=== PATIENT | male | born 1940 | race Caucasian/White ===

== ENCOUNTER 2016-04-07 22:10 | Inpatient (IN) | payer MEDICARE ==
[2016-04-07] MEDS ORDERED: HYDROmorphone 1 MG/ML 1 ML SYRINGE IVP STA (23:02)
[2016-04-07] MEDS ORDERED: NALOXONE 0.4 MG/ML 1 ML VIAL IV PRN (23:14)
[2016-04-07] MEDS ORDERED: ACETAMINOPHEN TAB 325 MG TAB PO PRN (23:14)
[2016-04-07] MEDS ORDERED: MAG HYDROX/AL HYDROX/SIMETH 30 ML CUP PO PRN (23:14)
[2016-04-07] MEDS ORDERED: TEMAZEPAM 15 MG CAP PO PRN (23:14)
[2016-04-07] MEDS ORDERED: ALBUTEROL NEBULIZED 2.5 MG/3 ML INHALATION PRN (23:20)
[2016-04-07] MEDS: SODIUM CHLORIDE 0.9% 1,000 ML IV SCH (23:29)
--- NOTE | 2016-04-07 23:38 | ED ---
SOB HPI - General Chief Complaint: Shortness of Breath Stated Complaint: Chest Pain Time Seen by Provider: 04/07/16 22:25 Source: patient, EMS, RN notes reviewed Mode of arrival: EMS Limitations: no limitations - History of Present Illness Initial Comments: This patient is a 76-year-old man transferred from [facility] where he was seen today for left-sided chest pain and a nonproductive cough. The patient states that his symptoms started about 2 weeks ago. He was seen and diagnosed with pneumonia and noted that his pain continued. He was seen again and this time a CAT scan was added that showed probability of an underlying lung mass. The patient denies fever or chills. He has some left-sided, moderate intensity, pleuritic chest pain. Patient has some mild dyspnea. Patient has a non-productive cough. He denies fever or chills. He denies orthopnea. Patient denies leg pain or swelling. Denies change in urination or bowel movements. MD Complaint: cough, chest pain Onset/Timin -: week(s) Severity: moderate Quality: sharp Consistency: constant Improves With: upright position Worsens With: coughing, inspiration - Related Data Home Medications Medication Instructions Recorded Confirmed Albuterol Inhaler [Ventolin Hfa 2 puff INHALATION RT-Q4H PRN 04/07/16 04/07/16 Inhaler] Amoxicillin/Potassium Clav 1 tab PO Q12HR 04/07/16 04/07/16 [Augmentin 500-125 Tablet] Atenolol [Tenormin] 25 mg PO DAILY 04/07/16 04/07/16 Lisinopril [Zestril] 2.5 mg PO DAILY 04/07/16 04/07/16 Allergies Allergy/AdvReac Type Severity Reaction Status Date / Time No Known Allergies Allergy Verified 04/07/16 22:51 Review of Systems ROS Statement: Those systems with pertinent positive or pertinent negative responses have been documented in the HPI. ROS Other: All systems not noted in ROS Statement are negative. Constitutional: Denies: fever, chills, weakness Respiratory: Reports: cough, dyspnea. Denies: wheezes, hemoptysis Cardiovascular: Reports: chest pain. Denies: palpitations, edema, syncope Gastrointestinal: Denies: abdominal pain, nausea, vomiting Genitourinary: Denies: dysuria, hematuria Musculoskeletal: Denies: back pain Skin: Denies: rash Neurological: Denies: headache, weakness Past Medical History Additional Past Medical History / Comment(s): STATES "OVERSIDED HEART" History of Any Multi-Drug Resistant Organisms: None Reported Past Surgical History: Orthopedic Surgery Additional Past Surgical History / Comment(s): LEFT LEG, FEMUR FX 3 YRS AGO Past Psychological History: No Psychological Hx Reported Smoking Status: Former smoker Past Alcohol Use History: None Reported Past Drug Use History: None Reported General Exam Limitations: no limitations General appearance: alert, in no apparent distress Head exam: Present: atraumatic, normocephalic Eye exam: Present: normal appearance. Absent: scleral icterus, conjunctival injection Respiratory exam: Present: rales (Right upper lung field), decreased breath sounds (Left base). Absent: respiratory distress, wheezes, rhonchi, stridor, accessory muscle use, prolonged expiratory Cardiovascular Exam: Present: regular rate, normal rhythm, normal heart sounds. Absent: systolic murmur, diastolic murmur, rubs, gallop GI/Abdominal exam: Present: soft. Absent: distended, tenderness, guarding, rebound, mass Extremities exam: Present: normal inspection, normal capillary refill. Absent: pedal edema, calf tenderness Back exam: Absent: CVA tenderness (R), CVA tenderness (L) Neurological exam: Present: alert Skin exam: Present: warm, dry, intact, normal color. Absent: rash, cyanosis, diaphoretic, erythema, petechiae, pallor, mottled Course Vital Signs 04/07/16 04/07/16 22:15 23:16 Temperature 98.8 F Pulse Rate 101 H 100 Respiratory 20 16 Rate Blood Pressure 135/78 111/63 O2 Sat by Pulse 95 95 Oximetry Disposition Clinical Impression: Pleural effusion, Lung mass Disposition: ADMITTED IP TO THIS HOSP Condition: Fair Referrals: Nonstaff,Physician [Primary Care Provider] - 1-2 days
[2016-04-07] MEDS ORDERED: ONDANSETRON 4 MG/2 ML VIAL IVP STA (23:57)
[2016-04-08] MEDS ORDERED: ONDANSETRON 4 MG/2 ML VIAL IVP STA
[2016-04-08 01:42] VITALS: BMI 24.1
[2016-04-08] MEDS: MORPHINE SULFATE 4 MG/ML SYRINGE IV PRN ×2 (05:36→11:20)
[2016-04-08] MEDS: ATENOLOL 25 MG TAB PO SCH (09:53)
[2016-04-08] MEDS: AMOXIC-POT CLAV 500-125 MG 1 EACH TAB PO SCH ×2 (09:53→21:34)
[2016-04-08] MEDS: HEPARIN SODIUM,PORCINE 5,000 UNIT/ML 1 ML VIAL SQ SCH ×2 (09:54→21:25)
[2016-04-08] MEDS: FAMOTIDINE 20 MG TAB PO SCH ×2 (09:54→21:47)
[2016-04-08] MEDS: LEVOFLOXACIN 750MG-D5W PMX 750 MG in DEXTROSE/WATER 1 150ML.BAG IVPB SCH (09:54)
[2016-04-08] MEDS: LISINOPRIL 2.5 MG TAB PO SCH (09:55)
--- NOTE | 2016-04-08 11:39 | XR ---
EXAMINATION TYPE: XR chest 1V portable DATE OF EXAM: 04/08/2016 11:12 AM COMPARISON: Prior chest x-ray 03 April 2016, second May 2012, CTA chest March HISTORY: Pneumonia, abnormal chest CT TECHNIQUE: Single frontal view of the chest is obtained. FINDINGS: The heart is enlarged. There is a sizable left pleural effusion present. Patient is rotate d. Interstitium is increased, mixed airspace disease is suspected within the right chest. There is me diastinal adenopathy. Central vascularity is prominent. IMPRESSION: Correlate for congestive heart failure with left pleural effusion, pneumonia not exclude d. Follow-up to resolution, chest CT suggests left lower lobe lung mass, abdominal masses are present compatible with metastatic disease.
--- NOTE | 2016-04-08 12:20 | P.CNPUL ---
History of Present Illness Consult date: 04/08/16 Reason for consult: lung mass History of present illness: This is a 76-year-old male patient, an ex-smoker who quit smoking more than 15 years ago, was having symptoms of pneumonia approximately 2 weeks ago. The patient was seen by his primary care physician and he was given a course of Augmentin without much improvement. Based on this, the patient presented back and he had a chest x-ray that showed a mass in the left lung. Based on this, a computed tomography scan of the chest was done and a CAT scan showed a large mass involving the left hilar and mediastinal area and there is also evidence of subdiaphragmatic lymphadenopathy. There is a small left-sided pleural effusion with compressive atelectasis of the left lung base. No evidence of any pulmonary embolism. These findings were very worrisome of lung cancer on the face and that the patient was transferred to [facility] for further evaluation and treatment and diagnosis. Clinically, the patient is stable for now. He is not having any hemoptysis. He admits to have some weight loss especially over the past 1 year. No chest pain. No change in mental status. No other complaints otherwise. Past Medical History Additional Past Medical History / Comment(s): Hypertension, coronary artery disease with a remote history of myocardial infarction, skin cancer resected from the forehead, questionable irregular heartbeat/atrial fibrillation and the patient is currently in sinus rhythm, history of broken ribs History of Any Multi-Drug Resistant Organisms: None Reported Past Surgical History: Orthopedic Surgery Additional Past Surgical History / Comment(s): ORIF and insertion of a metal rods in the left leg in 2012, colonoscopy Past Anesthesia/Blood Transfusion Reactions: No Reported Reaction Past Psychological History: No Psychological Hx Reported Smoking Status: Former smoker Past Alcohol Use History: None Reported Past Drug Use History: None Reported Medications and Allergies Home Medications Medication Instructions Recorded Confirmed Type Albuterol Inhaler [Ventolin Hfa 2 puff INHALATION RT-Q4H PRN 04/07/16 04/07/16 History Inhaler] Amoxicillin/Potassium Clav 1 tab PO Q12HR 04/07/16 04/07/16 History [Augmentin 500-125 Tablet] Atenolol [Tenormin] 25 mg PO DAILY 04/07/16 04/07/16 History Lisinopril [Zestril] 2.5 mg PO DAILY 04/07/16 04/07/16 History Allergies Allergy/AdvReac Type Severity Reaction Status Date / Time No Known Allergies Allergy Verified 04/07/16 22:51 Physical Exam Vitals: Vital Signs Temp Pulse Pulse Resp BP BP Pulse Ox 04/08/16 07:43 98 F 92 16 118/61 95 04/08/16 01:13 97.3 F L 103 H 18 142/82 94 L 04/08/16 00:05 90 16 129/64 96 Intake and Output 04/07/16 04/08/16 04/08/16 22:59 06:59 14:59 Other: Weight 70 kg The patient appeared well nourished and normally developed. Vital signs as documented. Head exam is unremarkable. No scleral icterus or corneal arcus noted. Neck is without jugular venous distension, thyromegaly, or carotid bruits. Carotid upstrokes are brisk bilaterally. Lung sounds are diminished specially in the left lung base. There is no significant. Cardiac exam reveals the PMI to be normally sized and situated. Rhythm is regular. First and second heart sounds normal. No murmurs, rubs or gallops. Abdominal exam reveals normal bowel sounds, no masses, no organomegaly and no aortic enlargement. Extremities are nonedematous and both femoral and pedal pulses are normal. Results - Diagnostic Findings CT scan - chest: image reviewed Assessment and Plan Plan: Impression 1 left hilar mass with extensive mediastinal lymphadenopathy, worrisome for underlying bronchogenic carcinoma. The patient will need a bronchoscopy for tissue diagnosis. 2 small left-sided pleural effusion 3 COPD 4 recent pneumonia, treated with antibiotics 5 hypertension 6 ex-smoker, [id number] smoking history and he quit 15 years ago Plan I reviewed the CAT scan of the chest was sent to us from [facility]. The left-sided pleural effusion is small and it may not give us a good yield in terms of tissue diagnosis. Based on this, I decided to proceed with a bronchoscopy and the patient has a very accessible mediastinal mass that can be accessed through bronchoscopy and transbronchial needle aspirate. The procedure as stated the patient and the patient was agreeable. He'll be kept nothing by mouth after midnight and the procedure will be done first thing in the morning. We'll continue to follow make further recommendations based on the results of the bronchoscopy.
[2016-04-08 12:44] LABS: Basophils # (A) 0.1 k/uL (0-0.2); Basophils % (A) 1 %; CH 28.6; CHCM 31.9; Eosinophils # (A) 0.3 k/uL (0-0.7); Eosinophils % (A) 3 %; HCT 38.7 % (39.0-53.0); HDW 2.33; HGB 12.2 gm/dL (13.0-17.5); Luc # (Auto) 0.16; Luc % (Auto) 2; Lymphocytes # (A) 0.5 k/uL (1.0-4.8); Lymphocytes % (A) 6 %; MCH 28.4 pg (25.0-35.0); MCHC 31.5 g/dL (31.0-37.0); Mean Platelet Volume 6.4; Monocytes # (A) 0.5 k/uL (0-1.0); Monocytes % (A) 6 %; Neutrophils # (A) 7.4 k/uL (1.3-7.7); Neutrophils % (A) 83 %; RDW 12.5 % (11.5-15.5); WBC 8.9 k/uL (3.8-10.6); WBC (Perox) 9.29
[2016-04-08 12:58] LABS: ALT 34 U/L (21-72); AST 31 U/L (17-59); Alkaline Phosphatase 58 U/L (38-126); Anion Gap 10 mmol/L; Blood Urea Nitrogen 21 mg/dL (9-20); Calcium 8.5 mg/dL (8.4-10.2); Carbon Dioxide 26 mmol/L (22-30); Chloride 98 mmol/L (98-107); Glucose 108 mg/dL (74-99); Non-African American GFR(MDRD) >60 (>60 ml/min/1.73 sqM); Potassium 5.2 mmol/L (3.5-5.1); Sodium 134 mmol/L (137-145); Total Bilirubin 0.6 mg/dL (0.2-1.3); Total Protein 6.1 g/dL (6.3-8.2)
--- NOTE | 2016-04-08 14:01 | HP ---
DATE OF ADMISSION: The chief complaints are shortness of breath and cough. HISTORY OF PRESENT ILLNESS: This 76-year-old gentleman with a past history of DJD and cardiomegaly being followed by Dr. Madalyn Ramos in the outpatient setting, not feeling well for the past several days. Patient initially had cough and sputum. Patient is admitted to [facility] with left-sided pneumonia suspected, subsequently CAT scan showed possible mass lesion. Patient was transferred to [facility] for further evaluation and treatment. There is no history of fever, chills or rigors. No history of headache, loss of consciousness at this time. PAST MEDICAL HISTORY: History of DJD, history of cardiomegaly, history of nicotine dependence, hypertension. Medications prior to admission include: 1. Zestril 2.5 mg daily. 2. Tenormin 25 mg daily. 3. Augmentin 1 p.o. b.i.d. 4. Albuterol 1 to 2 puffs q.4 p.r.n. Allergies are none. FAMILY HISTORY: No history of heart disease or strokes in the family. SOCIAL HISTORY: Previous history of smoking, no history of alcohol intake. No smoking currently. REVIEW OF SYSTEMS: ENT: No diminished hearing, no diminished vision. CARDIOVASCULAR: As mentioned earlier. RESPIRATORY: As mentioned earlier. GI: No nausea. : No dysuria. NERVOUS SYSTEM: No weakness. ALLERGY/IMMUNOLOGY: No asthma or hayfever. MUSCULOSKELETAL: As mentioned earlier. HEMATOLOGY/ONCOLOGY: No history of anemia. ENDOCRINE: No history of diabetes mellitus or hypothyroidism. CONSTITUTIONAL: As mentioned earlier. DERMATOLOGY: Negative. RHEUMATOLOGY: Negative. PSYCHIATRY: As mentioned earlier. PHYSICAL EXAMINATION: Patient is alert and oriented x3. Pulse is 92, blood pressure 118/61, respiratory rate 16, temperature 98 degrees, pulse ox 94% on 2 L. HEENT: Conjunctivae normal. NECK: No jugular venous distention. CARDIOVASCULAR SYSTEM: S1, S2, muffled. RESPIRATORY: Breath sounds diminished at the bases. Bilateral scattered rhonchi and expiratory wheezing also noted. The abdomen is soft, nontender. EXTREMITIES: No edema, no swelling. NERVOUS SYSTEM: Higher functions as mentioned, moves all 4 limbs. LYMPHATICS: No lymph node enlargement in neck, groin or axillae. SKIN: No ulcers, rash or bleeding. Labs are awaiting to assess. ASSESSMENT: 1. Left lower pneumonia, possibly gram-negative, possibly postobstructive. 2. Rule out lung malignancy on the left lower lobe. 3. History of nicotine dependence. 4. History of degenerative joint disease. 5. History of cardiomegaly. 6. Hypertension. 7. FULL CODE. RECOMMENDATION: In this 76-year-old gentleman who presented with multiple complex medical issues, will monitor volume the patient closely. Continue with the symptomatic treatment, continue with broad-spectrum IV antibiotics, bronchodilators. I would recommend Pulmonary consultation, Dr. Pope. Otherwise, continue to monitor. Guarded prognosis because of multiple complex medical issues. I would also recommend a 2-D echo with Doppler also. Repeat labs are ordered. DVT prophylaxis. See orders for details. Further recommendations to follow. A copy of this will be forwarded to Dr. Madalyn Ramos who is the primary physician.
[2016-04-08] MEDS: ONDANSETRON 4 MG/2 ML VIAL IVP PRN (15:15)
[2016-04-08] MEDS: LEVALBUTEROL NEB (CONC) 1.25 MG/0.5 ML AMP INHALATION SCH ×2 (15:54→19:59)
[2016-04-08] MEDS: IPRATROPIUM 0.5 MG/2.5 ML NEBU INHALATION SCH ×2 (15:54→19:59)
[2016-04-08 16:04] LABS: Appearance,Urine Clear (Clear); Bacteria,Urine Few /hpf; Bilirubin,Urine Negative (Negative); Glucose,Urine (UA) Negative (Negative); Granular Casts,Urine 1 /lpf (0); Ketones,Urine 1+ (Negative); Leukocyte Esterase,Urine Negative (Negative); Mucus,Urine Rare /hpf; Nitrite,Urine Negative (Negative); PH, Urine 5.5 (5.0-8.0); Particle Count 10611; Protein,Urine 1+ (Negative); RBC,Urine 6 /hpf (0-5); Specific Gravity,Urine 1.032 (1.001-1.035); UA Billing (MACRO vs. MICRO) MICRO; WBC,Urine 1 /hpf (0-5)
[2016-04-08] MEDS ORDERED: HYDROcodone/APAP 5-325MG 1 EACH TAB PO PRN (18:17)
[2016-04-08] MEDS: HYDROmorphone 1 MG/ML 1 ML SYRINGE IVP PRN (18:27)
[2016-04-08] MEDS: SYMBICORT 160-4.5 MCG INHALER INHALATION SCH (20:00)
[2016-04-08] MEDS ORDERED: RX INFO: IV CONTRAST WAS GIVEN 1 EACH MISC MISCELLANE PRN (21:31)
[2016-04-08 22:27] LABS: Glucose,Whole Blood 140 mg/dL (75-99)
--- NOTE | 2016-04-08 22:57 | CT ---
EXAMINATION TYPE: CT angio chest DATE OF EXAM: 04/08/2016 10:21 PM COMPARISON: 04/07/2016 from outside clinic. HISTORY: Increased shortness of breath and decreased oxygen saturation. CT DLP: 307.60 mGycm Automated exposure control for dose reduction was used. CONTRAST: CTA scan of the thorax is performed with IV Contrast, patient injected with 80 mL of Omnipaque 350, p ulmonary embolism protocol. . FINDINGS: LUNGS: There is moderate to large amount of left-sided pleural effusion and left lung atelectasis and infiltrates. Diffuse airspace opacities are noted in both lungs especially in the right lung with possible pulmona ry edema and CHF changes. Underlying pneumonia cannot be excluded. MEDIASTINUM: There is satisfactory enhancement of the pulmonary artery and its branches, there is no CT evidence for pulmonary embolism. The evaluation of peripheral pulmonary arterial branches is somewhat limited due to multiple artifact s especially involving left upper lobe pulmonary arterial branches. No pericardial effusion is seen. The ascending aorta measures 3.3 cm in greatest AP diameter without significant aneurysm. There is evidence of soft tissue opacities in the mediastinum most likely representing mediastinal ly mphadenopathy with one of the largest lymph nodes measuring approximately 1.5 x 4.0 cm in the precari nal area. This could also be related to confluence of multiple enlarged lymph nodes in the mediastinu m. There is also suggestion of multiple bilateral hilar lymph nodes. The right hilar lymph node measu res approximately 1.8 x 1.1 cm in the axial image 65. There is suspected large mass measuring 4.1 x 4.0 cm in the left hilum in the axial image 73. A clini terra correlation is recommended. OTHER: Multilevel degenerative changes are present in the thoracic spine. Thyroid goiter changes are noted. Visualized abdomen revealed no significant abnormal masses in the right adrenal gland. Left a drenal gland is not well visualized. IMPRESSION: 1. NO DEFINITE EVIDENCE OF ACUTE PULMONARY EMBOLISM. 2. THERE IS INTERVAL INCREASED AIRSPACE OPACITIES IN THE BILATERAL LUNG NG WITH SUGGESTED DIFFUSE PULMONARY EDEMA ESPECIALLY IN THE RIGHT LUNG WITH POSSIBLE CHF CHANGES. 3. LARGE LEFT-SIDED PLEURAL EFFUSION AND ATELECTASIS OF LEFT LUNG WITH INFILTRATES. 4. SUSPECTED LARGE SOFT TISSUE MASS MEASURING 4.1 BY 4.0 CM IN THE AXIAL IMAGE 73. 5. SUSPECTED MEDIASTINAL LYMPHADENOPATHY WITH POSSIBLE LYMPHOMA CHANGES. 6. THYROID GOITER CHANGES. A clinical correlation and follow-up is recommended.
[2016-04-08] MEDS: FUROSEMIDE 10 MG/ML 4 ML VIAL IV SCH (23:45)
[2016-04-09] MEDS: HYDROmorphone 1 MG/ML 1 ML SYRINGE IVP PRN ×2 (02:05→21:45)
[2016-04-09] MEDS: ONDANSETRON 4 MG/2 ML VIAL IVP PRN ×2 (02:05→21:45)
[2016-04-09] MEDS: SODIUM CHLORIDE 0.9% 1,000 ML IV SCH (02:05)
[2016-04-09 04:37] LABS: Basophils # (A) 0.1 k/uL (0-0.2); Basophils % (A) 1 %; CH 28.4; CHCM 31.2; Eosinophils % (A) 0 %; HCT 41.3 % (39.0-53.0); HDW 2.33; HGB 12.7 gm/dL (13.0-17.5); Hypochromasia Slight; Luc # (Auto) 0.18; Luc % (Auto) 1; Lymphocytes # (A) 0.4 k/uL (1.0-4.8); Lymphocytes % (A) 2 %; MCH 28.1 pg (25.0-35.0); MCHC 30.7 g/dL (31.0-37.0); MCV 91.5 fL (80.0-100.0); Mean Platelet Volume 6.4; Monocytes # (A) 0.7 k/uL (0-1.0); Monocytes % (A) 4 %; Neutrophils # (A) 15.3 k/uL (1.3-7.7); Neutrophils % (A) 92 %; RBC 4.52 m/uL (4.30-5.90); RDW 12.6 % (11.5-15.5); WBC 16.6 k/uL (3.8-10.6); WBC (Perox) 16.67
[2016-04-09 05:08] LABS: Calcium 8.9 mg/dL (8.4-10.2); Potassium 6.1 mmol/L (3.5-5.1)
[2016-04-09] MEDS ORDERED: PANTOPRAZOLE 40 MG TABLET PO SCH (07:30)
[2016-04-09] MEDS: LEVOFLOXACIN 750MG-D5W PMX 750 MG in DEXTROSE/WATER 1 150ML.BAG IVPB SCH (07:55)
[2016-04-09] MEDS: HEPARIN SODIUM,PORCINE 5,000 UNIT/ML 1 ML VIAL SQ SCH ×2 (08:00→21:45)
[2016-04-09] MEDS: FAMOTIDINE 20 MG TAB PO SCH (08:00)
[2016-04-09] MEDS: FUROSEMIDE 10 MG/ML 4 ML VIAL IV SCH ×2 (08:01→21:45)
[2016-04-09] MEDS: IPRATROPIUM 0.5 MG/2.5 ML NEBU INHALATION SCH ×4 (08:59→19:50)
[2016-04-09] MEDS: LEVALBUTEROL NEB (CONC) 1.25 MG/0.5 ML AMP INHALATION SCH ×4 (08:59→19:50)
[2016-04-09] MEDS: SYMBICORT 160-4.5 MCG INHALER INHALATION SCH ×2 (09:00→19:49)
--- NOTE | 2016-04-09 09:42 | XR ---
EXAMINATION TYPE: XR chest 1V portable DATE OF EXAM: 04/09/2016 7:39 AM COMPARISON: Prior chest x-ray March HISTORY: Respiratory distress TECHNIQUE: Single frontal view of the chest is obtained. FINDINGS: Right-sided airspace disease may have progressed. Patient is rotated. Heart is enlarged. N o evident pneumothorax. Sizable left pleural effusion. Patient's underlying masses are not evident. IMPRESSION: There may be pneumonia, congestive heart failure, pleural effusion, patient with metasta tic disease and mediastinal adenopathy.
--- NOTE | 2016-04-09 10:05 | P.PN ---
Subjective This is a 76-year-old male patient, an ex-smoker who quit smoking more than 15 years ago, was having symptoms of pneumonia approximately 2 weeks ago. The patient was seen by his primary care physician and he was given a course of Augmentin without much improvement. Based on this, the patient presented back and he had a chest x-ray that showed a mass in the left lung. Based on this, a computed tomography scan of the chest was done and a CAT scan showed a large mass involving the left hilar and mediastinal area and there is also evidence of subdiaphragmatic lymphadenopathy. There is a small left-sided pleural effusion with compressive atelectasis of the left lung base. No evidence of any pulmonary embolism. These findings were very worrisome of lung cancer on the face and that the patient was transferred to [facility] for further evaluation and treatment and diagnosis. Clinically, the patient is stable for now. He is not having any hemoptysis. He admits to have some weight loss especially over the past 1 year. No chest pain. No change in mental status. No other complaints otherwise. On 04/08/2016 the patient is being seen in follow-up. Note that the patient's respiratory status decompensated yesterday and the patient got transferred to the intensive care unit. He became progressively more short of breath and hypoxic. At that point I ordered a computed tomography scan of the chest which essentially ruled out the possibility of pulmonary embolism, yet there was interval increase in the airspace opacities in the bilateral lung coy suggestive of diffuse bilateral pulmonary edema especially in the right lung with CHF changes and there was a large left-sided pleural effusion with atelectasis of the left lung base and addition a large 4.1 x 4.0 cm mass in the left infrahilar area and extensive mediastinal lymphadenopathy. The patient is currently on high flow oxygen at 15 L/m nasal cannula. His pulse is around 88% . I was initially intending to proceed with a bronchoscopy on this patient to establish a tissue diagnosis. At this point in time, with this patient's borderline respiratory status, I'm unable to perform the bronchoscopy and I'm going to offer this patient a thoracentesis of the left lung specialist that he has developed a large sized left-sided pleural effusion. Overnight the patient was also given diuretics. Was status was discussed and the patient has a DO NOT RESUSCITATE DO NOT INTUBATE CODE STATUS at this point. Objective - Vital Signs Vital signs: Vital Signs Temp 99.1 F 04/09/16 08:00 Pulse 103 H 04/09/16 09:15 Resp 20 04/09/16 09:00 BP 82/49 04/09/16 09:00 Pulse Ox 89 L 04/09/16 09:00 Intake & Output 04/08/16 04/09/16 04/09/16 18:59 06:59 18:59 Intake Total 250 Output Total 1250 200 Balance -1000 -200 Weight 70 kg Intake: IV 150 Levofloxacin 750Mg-D5w 150 Pmx 750 mg In Dextrose/ Water 1 150ml.bag @ 100 mls/hr IVPB DAILY [facility] Rx# :[id number] Oral 100 Output: Urine 1250 200 Other: Voiding Method Urinal Indwelling Catheter # Voids 2 - Exam The patient appeared well nourished and normally developed. Vital signs as documented. Head exam is unremarkable. No scleral icterus or corneal arcus noted. Neck is without jugular venous distension, thyromegaly, or carotid bruits. Carotid upstrokes are brisk bilaterally. Lung sounds are diminished specially in the left lung base. There is no significant. Cardiac exam reveals the PMI to be normally sized and situated. Rhythm is regular. First and second heart sounds normal. No murmurs, rubs or gallops. Abdominal exam reveals normal bowel sounds, no masses, no organomegaly and no aortic enlargement. Extremities are nonedematous and both femoral and pedal pulses are normal. - Labs CBC & Chem 7: 04/09/16 04:09 04/09/16 04:09 Labs: Abnormal Lab Results - Last 24 Hours (Table) 04/08/16 04/08/16 04/08/16 Range/Units 12:25 12:25 15:00 WBC (3.8-10.6) k/uL Hgb 12.2 L (13.0-17.5) gm/dL Hct 38.7 L (39.0-53.0) % MCHC (31.0-37.0) g/dL Plt Count 496 H (150-450) k/uL Neutrophils # (1.3-7.7) k/uL Lymphocytes # 0.5 L (1.0-4.8) k/uL Sodium 134 L (137-145) mmol/L Potassium 5.2 H (3.5-5.1) mmol/L Chloride (98-107) mmol/L BUN 21 H (9-20) mg/dL Creatinine (0.66-1.25) mg/dL Glucose 108 H (74-99) mg/dL POC Glucose (mg/dL) (75-99) mg/dL Total Protein 6.1 L (6.3-8.2) g/dL Albumin 3.1 L (3.5-5.0) g/dL Urine Protein 1+ H (Negative) Urine Ketones 1+ H (Negative) Urine Blood Small H (Negative) Urine RBC 6 H (0-5) /hpf Urine Bacteria Few H (None) /hpf Urine Mucus Rare H (None) /hpf 04/08/16 04/09/16 04/09/16 Range/Units 22:25 04:09 04:09 WBC 16.6 H (3.8-10.6) k/uL Hgb 12.7 L (13.0-17.5) gm/dL Hct (39.0-53.0) % MCHC 30.7 L (31.0-37.0) g/dL Plt Count 499 H (150-450) k/uL Neutrophils # 15.3 H (1.3-7.7) k/uL Lymphocytes # 0.4 L (1.0-4.8) k/uL Sodium 134 L (137-145) mmol/L Potassium 6.1 H (3.5-5.1) mmol/L Chloride 97 L (98-107) mmol/L BUN 23 H (9-20) mg/dL Creatinine 1.44 H (0.66-1.25) mg/dL Glucose 120 H (74-99) mg/dL POC Glucose (mg/dL) 140 H (75-99) mg/dL Total Protein (6.3-8.2) g/dL Albumin (3.5-5.0) g/dL Urine Protein (Negative) Urine Ketones (Negative) Urine Blood (Negative) Urine RBC (0-5) /hpf Urine Bacteria (None) /hpf Urine Mucus (None) /hpf Assessment and Plan Plan: Impression 1 left hilar mass with extensive mediastinal lymphadenopathy, worrisome for underlying bronchogenic carcinoma. The patient was seen in consultation yesterday. Initial plan was to proceed with a bronchoscopy for tissue diagnosis. Nevertheless, the patient became progressively more hypoxic and short of breath. At that point he got moved to the intensive care unit initially placed on BiPAP and currently is on high flow oxygen 15 L/m nasal cannula. Bronchoscopy is not possible. The repeat CAT scan of the chest was done and it showed enlargement of the left-sided pleural effusion I think it's more accessible for thoracentesis. This will be done for diagnostic and therapeutic reasons. 2 Diffuse bilateral pulmonary interstitial changes more so on the right, suspect a component of heart failure/pulmonary edema in addition to an underlying lung mass and malignancy. 3 COPD 4 acute hypoxic respiratory failure currently on high flow oxyge 5 hypertension 6 ex-smoker, [id number] smoking history and he quit 15 years ago Plan Unfortunately the patient's prognosis very poor. The patient has a large left lung mass causing compression atelectasis in the left lung base in addition to development of a moderate to large left-sided pleural effusion and extensive based on lymphadenopathy. Furthermore the acute hypoxic respiratory failure involved as the patient developed airspace disease bilaterally more so on the right typical of an underlying pulmonary edema although superimposed pneumonia and/or malignancy cannot be completely excluded. At this point in time the patient is on high flow oxygen and the intensive care unit. I offered this patient had diagnostic and therapeutic thoracentesis. I'm not sure if the patient's left lung is going to expanded following the thoracentesis and I'm not sure if is getting get a full benefit of the procedure. It is also likely that he may end up giving this patient a pneumothorax if the lung presented to be trapped and we don't achieve a full expansion. All these were explained to the patient. For now would proceed with a thoracentesis for diagnostic and therapeutic purposes. No bronchoscopy will be done as the patient's respiratory status is quite borderline and he may not be able to handle the procedure. He is a DO NOT INTUBATE CODE STATUS.
--- NOTE | 2016-04-09 10:34 | ECHOF ---
Referral Reason:chf MEASUREMENTS -------- HEIGHT: 170.2 cm WEIGHT: 69.8 kg BP: RVIDd: 2.9 cm (< 3.3) IVSd: 1.1 cm (0.6 - 1.1) LVIDd: 3.5 cm (3.9 - 5.3) LVPWd: 1.5 cm (0.6 - 1.1) IVSs: 1.5 cm LVIDs: 2.8 cm LVPWs: 1.6 cm LA Diam: 3.1 cm (2.7 - 3.8) Ao Diam: 3.4 cm (2.0 - 3.7) AV Cusp: 2.4 cm (1.5 - 2.6) LA Diam: 3.4 cm (2.7 - 3.8) MV EXCURSION: 18.807 mm (> 18.000) MV EF SLOPE: 79 mm/s (70 - 150) EPSS: 0.7 cm MV E Ignacio: 0.51 m/s MV DecT: 216 ms MV A Ignacio: 0.86 m/s MV E/A Ratio: 0.59 FINDINGS -------- Sinus rhythm. This was a technically adequate study. There is mild concentric left ventricular hypertrophy. Overall left ventricular systolic function is low-normal with, an EF between 50 - 55 %. The right ventricle is normal in size. The left atrial size is normal. The right atrial size is normal. There is mild aortic valve sclerosis. There is no evidence of aortic regurgitation. Mild mitral annular calcification present. Mild mitral regurgitation is present. Mild tricuspid regurgitation present. There is no evidence of pulmonary hypertension. The right ventricular systolic pressure, as measured by Doppler, is {RVSP}. The pulmonic valve was not well visualized. There is a small, generalized pericardial effusion present. Pleural Effusion with Fibrin. CONCLUSIONS -------- 1. There is mild concentric left ventricular hypertrophy. 2. There is a small, generalized pericardial effusion present. 3. Pleural Effusion with Fibrin. 4. Overall left ventricular systolic function is low-normal with, an EF between 50 - 55 %. 5. There is mild aortic valve sclerosis. 6. Mild mitral annular calcification present. 7. Mild mitral regurgitation is present. 8. Mild tricuspid regurgitation present. 9. There is no evidence of pulmonary hypertension. 10. The right ventricular systolic pressure, as measured by Doppler, is {RVSP}. 11. The pulmonic valve was not well visualized. NECK FITTER: Floresita Ascencio RDCS
--- NOTE | 2016-04-09 10:46 | XR ---
EXAMINATION TYPE: XR chest 1V portable DATE OF EXAM: 04/09/2016 10:31 AM HISTORY: Post left-sided thoracentesis. REFERENCE: Previous study of earlier today. FINDINGS: There has been a reduction in the amount of left-sided pleural fluid. No pneumothorax is id entified. The heart is enlarged. There is diffuse groundglass opacity in the right hemithorax. This is unchange d and may represent pneumonia. There is some left basilar airspace disease as well. IMPRESSION: I DO NOT SEE A POSTTHORACENTESIS COMPLICATION.
[2016-04-09] MEDS: LISINOPRIL 2.5 MG TAB PO SCH (10:52)
--- NOTE | 2016-04-09 12:24 | PCN ---
DATE OF PROCEDURE: THORACENTESIS Indication: Pleural effusion. A time-out was completed verifying correct patient, procedure, site, positioning, and implant (s) or special equipment if applicable. Ultrasound guidance was not used and appropriate fluid pocket was identified and marked. Patient was positioned, prepped and draped in usual sterile fashion. Lidocaine was used to anesthetize the area. A Thoracentesis catheter was introduced into the pleural space and fluid was removed. Blood loss was none. A chest x-ray was ordered to evaluate for pneumothorax. Total Fluid Removed: 1.3 L Color of Fluid: Turbid pleural effusion. Fluid ( ) sent for appropriate laboratory tests. Patient tolerated the procedure well and there were no complications. This was done without ultrasound markings on the left side. Total of amount of fluid removed was 1.3 L turbid pleural effusion on the left without any complications or pneumothorax.
[2016-04-09 13:04] LABS: Total Protein 6.7 g/dL (6.3-8.2)
[2016-04-09] MEDS: ATENOLOL 25 MG TAB PO SCH (13:42)
[2016-04-09] MEDS ORDERED: SODIUM CHLORIDE 0.9% 1,000 ML IV ONE (15:40)
[2016-04-09 18:02] VITALS: RESP 30
[2016-04-09 18:22] LABS: RBC, Body Fluid 58900 /uL
--- NOTE | 2016-04-09 18:42 | PN ---
DATE OF SERVICE: 04/09/2016 This 76-year-old gentleman who was admitted with left lower lobe pneumonia also had features of acute respiratory failure. Overnight the patient was transferred to ICU. The patient was also noted to have a left hilar mass with extensive lymphadenopathy. The patient also was suspected to have possible obstructive pneumonitis. The most recent chest x-ray showed evidence of pleural effusion, and Dr. Pope performed thoracocentesis; about 1.3 L of fluid removed from the left side is turbid, and the patient is being closely monitored in the ICU. The patient is also complaining of left ear pain. The patient had it irrigated elsewhere. Past medical history reviewed. REVIEW OF SYSTEMS: CARDIOVASCULAR SYSTEM: As mentioned earlier. RESPIRATORY SYSTEM: As mentioned earlier. GI: No nausea, vomiting. : No dysuria. NERVOUS SYSTEM: No numbness or weakness. Medications are reviewed and include: 1. Tylenol 650 q.6 p.r.n. 2. [place] 5 mg q.6 p.r.n. 3. Maalox. 4. Tenormin 25 mg daily. 5. Symbicort 160/4.5 two puffs b.i.d. 6. Pepcid 20 mg p.o. b.i.d. 7. Lasix 40 mg b.i.d. 8. Heparin 5000 units subcutaneously b.i.d. 9. Dilaudid 0.5 q.3 p.r.n. 10. Atrovent. 11. Xopenex. 12. Levaquin 750 daily. 13. Zestril 2.5 mg daily. 14. Morphine. 15. Narcan. 16. Protonix. 17. Zestril. PHYSICAL EXAMINATION: Patient is alert and oriented x3. Pulse is 105, blood pressure 84/53, respiration 14, temperature 98.2, pulse ox 94% on 15 L. HEENT: Conjunctivae normal. Oral mucosa moist. NECK: No jugular venous distention. No carotid bruit. No lymph node enlargement. CARDIOVASCULAR SYSTEM: S1, S2 muffled. RESPIRATORY SYSTEM: Breath sounds diminished at the bases. Bilateral scattered rhonchi and crackles. ABDOMEN: Soft, non-tender. No mass palpable. LEGS: No edema. No swelling. NERVOUS SYSTEM: Higher functions as mentioned earlier. Moves all 4 limbs. No focal motor or sensory deficit. LYMPHATICS: No lymph node palpable in neck, axillae or groin. SKIN: No ulcer, rash, bleeding. Labs at this time show WBC 16.6, hemoglobin 12.6; sodium 134, potassium 6.1. LDH is 1583. ASSESSMENT: 1. Acute left lower pneumonia, possibly Gram-negative, possibly post-obstructive, with sepsis and acute hypoxic respiratory failure, on BiPAP. 2. Rule out lung malignancy on the left side with left hiatal mass and lymphadenopathy. 3. Left pleural effusion, status post thoracocentesis. 4. History of nicotine dependence. 5. History of degenerative joint disease. 6. History of cardiomegaly. 7. Hypertension. 8. Rule out external otitis. 9. Hypoalbuminemia. 10. Hyperkalemia. 11. Hyponatremia. 12. Increased creatinine with acute renal failure, possibly prerenal. 13. Increased white count secondary to sepsis. 14. Increased platelets. 15. NO CODE, NO CPR, NO VENT. RECOMMENDATIONS AND DISCUSSION: This 76-year-old gentleman who presented with multiple complex medical issues, we will monitor the patient closely, continue the current medications, continue with symptomatic treatment. Will initiate excessive bronchodilator treatment. Otherwise, closely follow with Dr. Pope. Diuretics have also been initiated. Repeat chest x-ray. Repeat labs. DVT prophylaxis. Guarded prognosis because of multiple complex medical issues. Further recommendations to follow. Will await pleural fluid cytology and continue to monitor. Once again, the prognosis is guarded. There is some erythema in the left ear. The patient is not improving. We will obtain either culture or ENT evaluation. Once again, the prognosis is guarded because of multiple complex medical issues. Further recommendations to follow.
[2016-04-10] MEDS: MORPHINE SULFATE 4 MG/ML SYRINGE IV PRN ×3 (02:30→05:48)
[2016-04-10] MEDS ORDERED: LORazepam 2 MG/ML SYRINGE IV PRN (03:46)
[2016-04-10] MEDS ORDERED: MORPHINE SULFATE (100 MG/2 ML) 100 MG in SODIUM CHLORIDE 0.9% 100 ML IV SCH (04:00)
[2016-04-10 04:19] VITALS: BP 95/61; PULSE 115; TEMP 98.2
[2016-04-10] MEDS: SYMBICORT 160-4.5 MCG INHALER INHALATION SCH (08:09)
[2016-04-10] MEDS: SODIUM CHLORIDE 0.9% 1,000 ML IV SCH (08:23)
--- NOTE | 2016-04-10 08:46 | XR ---
EXAMINATION TYPE: XR chest 1V portable DATE OF EXAM: 04/10/2016 6:36 AM COMPARISON: 04/09/2016 HISTORY: Shortness of breath FINDINGS: There are bilateral pleural effusions with cardiomegaly and bibasilar infiltrate. There is a diffuse interstitial pattern. Arthropathy of the shoulders and hypertrophic change of the spine noted. Mediastinum and hilum are pr ominent. Correlate clinically. IMPRESSION: 1. Persistent pleural parenchymal changes most typical of CHF with small left pleural effusion. Corre late clinically.
[2016-04-10] MEDS: HYDROmorphone 1 MG/ML 1 ML SYRINGE IVP PRN (08:49)
--- NOTE | 2016-04-10 11:56 | DS ---
DATE OF ADMISSION: 04/07/2016 DATE OF DISCHARGE: PRELIMINARY CAUSE OF : Possibly lung malignancy with left hilar mass and lymphadenopathy and pleural effusion. OTHER DIAGNOSES: 1. Acute left lower lobe pneumonia, possibly Gram-negative with acute hypoxic respiratory failure, status post BiPAP. 2. Left pleural effusion, status post thoracocentesis. 3. History of nicotine dependence. 4. History of degenerative joint disease. 5. History of cardiomegaly. 6. Hypertension. 7. Possible external otitis. 8. Hypoalbuminemia. 9. Hyperkalemia. 10. Hyponatremia. 11. Increased creatinine with acute renal failure, possibly prerenal. 12. Increased WBC, possibly secondary to sepsis. 13. Increased platelets. 14. NO CODE, NO CPR, NO VENT. 15. Comfort measures. HISTORY OF PRESENT ILLNESS: This 76-year-old gentleman with a past medical history of multiple medical problems was admitted with significant pneumonia and pleural effusion. The patient also had features of respiratory failure. After a pleural tap, patient was feeling slightly better, but; however, discussion was held with the family and the patient and the patient decided to go with comfort measures and the patient because of above complex medical issues. The prognosis was guarded throughout the hospital stay. Please refer to the previous dictations for more information. Prognosis remained guarded throughout the hospital stay. Patient followed with in the outpatient setting. [facility]
[2016-04-11] MEDS ORDERED: LEVOFLOXACIN 750MG-D5W PMX 750 MG in DEXTROSE/WATER 1 150ML.BAG IVPB SCH (09:00)
== END 2016-04-10 13:30 | disposition expired | DRG 177 ==
LOC: EC 22:10 → 5MS5E 23:52 → 6ICU 04-08 22:07 → 5ONC 04-10 09:38
PROVIDERS: ADMIT Hospitalist; ATTEND Hospitalist
PROC: 0W9B3ZX Drainage of Left Pleural Cavity, Percutaneous Approach, Diagnostic (ICD-10-PCS; principal; 2016-04-09)
DX: J15.6 Pneumonia due to other Gram-negative bacteria (principal); J96.01 Acute respiratory failure with hypoxia; N17.9 Acute kidney failure, unspecified; A41.9 Sepsis, unspecified organism; J91.8 Pleural effusion in other conditions classified elsewhere; C34.02 Malignant neoplasm of left main bronchus; E87.1 Hypo-osmolality and hyponatremia; J98.11 Atelectasis; Z66 Do not resuscitate; Z51.5 Encounter for palliative care; J44.9 Chronic obstructive pulmonary disease, unspecified; E88.09 Other disorders of plasma-protein metabolism, not elsewhere classified; I11.9 Hypertensive heart disease without heart failure; E87.5 Hyperkalemia; I25.2 Old myocardial infarction; I25.10 Atherosclerotic heart disease of native coronary artery without angina pectoris; R59.0 Localized enlarged lymph nodes; H60.92 Unspecified otitis externa, left ear; M19.90 Unspecified osteoarthritis, unspecified site; Z87.891 Personal history of nicotine dependence; Z85.828 Personal history of other malignant neoplasm of skin; Z87.01 Personal history of pneumonia (recurrent); Z79.2 Long term (current) use of antibiotics; Z79.899 Other long term (current) drug therapy
CPT/HCPCS: 71010; 71275; 80048; 80053; 81001; 82945; 83615; 83735; 84132; 84155; 84157; 85025; 87040; 87070; 87086; 87205; 88108; 88305; 88341; 88342; 89050; 93306; 94640; 94660; 96374; 96375; 99285